=== PATIENT | female | born 1980 | race Caucasian/White ===

== ENCOUNTER 2017-05-29 17:50 | Emergency (ER) | payer BC, OTHER ==
[2017-05-29 17:56] VITALS: TEMP 97.5; O2SAT 100
[2017-05-29] MEDS ORDERED: SODIUM CHLORIDE 0.9% 1000ML 1,000 ML IV SCH (18:45)
[2017-05-29] MEDS ORDERED: KETOROLAC TROMETHAMINE 30 MG/ML SOL IV ONE (18:53)
[2017-05-29] MEDS ORDERED: KETOROLAC TROMETHAMINE 30 MG/ML SOL ONE (18:54)
[2017-05-29 18:57] VITALS: PULSE 80; RESP 20
[2017-05-29 20:07] VITALS: BP 136/93
== END 2017-05-29 20:19 | disposition home or self-care (01) ==
LOC: ED 17:50
DX: K52.9 Noninfective gastroenteritis and colitis, unspecified (principal)
CPT/HCPCS: 36415; 74176; 96365; 96374; 99284; J1885